=== PATIENT | male | born 1995 | race Two or more races ===

== ENCOUNTER 2019-04-14 13:21 | Emergency (ER) | payer OTHER ==
[~2019-04-14] VITALS: Ht 177.8 cm; Wt 60.8 kg
--- NOTE | 2019-04-14 13:29 | NUR ---
Patient arrived at unit with c/o right foot pain and swelling s/p wood pallet fell on his foot, 10/10 pain scale. accompanied to bed. will continue to monitor
[2019-04-14] MEDS ORDERED: HYDROCODONE/APAP 10/325MG 1 EA TABLET PO ONE (13:30)
[2019-04-14] MEDS ORDERED: HYDROCODONE/APAP 10/325MG 1 EA TABLET ONE (13:33)
--- NOTE | 2019-04-14 14:55 | NUR ---
patient cleared to be discharged. discharge instructions and education provided and patient verbalized understanding. patient verbalized that somebody will come and pick him up. lunch provided. will continue to monitor
[2019-04-14 15:51] VITALS: BP 118/81
--- NOTE | 2019-04-14 15:51 | NUR ---
Patient discharged to home in stable condition. Written and verbal after care instructions given. Patient verbalizes understanding of instruction.
== END 2019-04-14 15:52 | disposition home or self-care (01) ==
LOC: ER 13:32
DX: S92.311A Displaced fracture of first metatarsal bone, right foot, initial encounter for closed fracture (principal); W20.8XXA Other cause of strike by thrown, projected or falling object, initial encounter; Y93.89 Activity, other specified; Y92.89 Other specified places as the place of occurrence of the external cause; Y99.0 Civilian activity done for income or pay
CPT/HCPCS: 73630-TC